=== PATIENT | female | born 1970 | race Hispanic/Latino ===

== ENCOUNTER 2021-07-16 07:38 | Outpatient (CLI) | payer OTHER | END 2021-07-16 07:39 | disposition home or self-care (01) | LOC: BICULT 07:38 | PROVIDERS: ATTEND Family Medicine | DX: R79.89 Other specified abnormal findings of blood chemistry (principal) | CPT/HCPCS: 76700 ==

== ENCOUNTER 2022-05-14 13:22 | Outpatient (CLI) | payer SELFPAY | END 2022-05-14 13:23 | disposition home or self-care (01) | LOC: ULT 13:22 | PROVIDERS: ATTEND Family Medicine | DX: R10.2 Pelvic and perineal pain (principal); N83.8 Other noninflammatory disorders of ovary, fallopian tube and broad ligament | CPT/HCPCS: 76856 ==